=== PATIENT | male | born 1945 | race Caucasian/White ===

== ENCOUNTER 2017-11-16 11:44 | Emergency (ER) | payer MEDICARE, OTHER ==
[~2017-11-16] VITALS: Ht 188 cm; Wt 108.9 kg
[2017-11-16] MEDS ORDERED: OSLT75C PO (14:41)
[2017-11-16] MEDS ORDERED: RT-ALBUINH IH (14:41)
--- NOTE | 2017-11-16 14:42 | ED General ---
General Chief Complaint: Cough/Cold/Flu Symptoms Stated Complaint: FLU SYMPTOMS Nursing Triage Note: PT CO OF FLU SX FOR APPROX 3 DAYS, HAS CHILLS AND FEVER Nursing Sepsis Screen: No Definite Risk Allergies and Home Medications Allergies Coded Allergies: No Known Drug Allergies (Unverified , 11/16/17) Past Bahrwxo-[id number]-Tsmpzi Hx Patient Social History Alcohol Use: Rarely Uses Recreational Drug Use: No Smoking Status: Current Everyday Smoker Type Used: Cigarettes Recent Foreign Travel: No Contact w/Someone Who Travel: No Recent Infectious Disease Expo: No Recent Hopitalizations: No Physical Abuse: No Sexual Abuse: No Immunizations Up To Date Date of Pneumonia Vaccine: Jul 17, 2017 Date of Influenza Vaccine: Jul 17, 2017 Surgeries History of Surgeries: Yes Surgeries: Coronary Stent Respiratory History of Respiratory Disorde: Yes Respiratory Disorders: COPD Cardiovascular History of Cardiac Disorders: Yes Cardiac Disorders: Hypertension Neurological History of Neurological Disord: No Genitourinary History of Genitourinary Disor: No Gastrointestinal History of Gastrointestinal Di: No Musculoskeletal History of Musculoskeletal Dis: No Endocrine History of Endocrine Disorders: No HEENT History of HEENT Disorders: No Cancer History of Cancer: No Psychosocial History of Psychiatric Problem: No Suicide Risk Score: 0 Integumentary History of Skin or Integumenta: No Physical Exam Vital Signs Vital Sign - Last 12Hours 11/16/17 13:35 Temp 100.0 Pulse 95 Resp 18 B/P (MAP) 171/94 (119) Pulse Ox 95 Capillary Refill : Less Than 3 Seconds Progress/Results/Core Measures Suspected Sepsis Recent Fever Within 48 Hours: No Infection Criteria Present: None New/Unexplained Altered Menta: No Sepsis Screen: No Definite Risk Sepsis Diagnosis: SIRS Temperature:100.0 Pulse: 95 Respiratory Rate: 18 Blood Pressure 171 /94 Mean: 119 Results/Orders Micro Results Microbiology 11/16/17 Influenza Types A,B Antigen ([facility]AS[facility]) - Final, Complete Vital Signs/I&O Vital Sign - Last 12Hours 11/16/17 13:35 Temp 100.0 Pulse 95 Resp 18 B/P (MAP) 171/94 (119) Pulse Ox 95 Capillary Refill : Less Than 3 Seconds Blood Pressure Mean: 119 Departure Impression Impression: Primary Impression: Influenza A Additional Impression: Bronchospasm Disposition: 01 HOME, SELF-CARE Condition: Stable Departure-Patient Inst. Decision time for Depature: 14:38 Referrals: NO,LOCAL PHYSICIAN (PCP/Family) Primary Care Physician Patient Instructions: Flu, Adult (DC) Add. Discharge Instructions: Use your medications as prescribed. You may use Tylenol (acetaminophen) and/or ibuprofen for fever and pain. Return to care if symptoms worsen. It will likely take several more days for you to recover from this illness. Reduce your smoking as much as possible and work toward quitting. You may use gum, patches, or lozenges for replacement nicotine therapy. Do not used inhaled nicotine vapor products. Receive annual influenza vaccines to prevent future influenza illnesses. All discharge instructions reviewed with patient and/or family. Voiced understanding. Scripts Albuterol Sulfate (PROAIR HFA) 1 Puff Puff 1-4 PUFF IH Q4H Y for SHORTNESS OF BREATH, #1 PUFF 1 PUFF = 90 MCG Prov: AVIVA DURÁN MD 11/16/17 Oseltamivir Phosphate (Tamiflu) 75 Mg Cap 75 MG PO BID, #10 CAP Prov: AVIVA DURÁN MD 11/16/17 AVIVA DURÁN MD Nov 16, 2017 14:42
[2017-11-16 14:47] VITALS: BP 171/94
== END 2017-11-16 14:53 | disposition home or self-care (01) ==
LOC: EDUNIT# 11:44 → ER 11:45
DX: J10.1 Influenza due to other identified influenza virus with other respiratory manifestations (principal); J98.01 Acute bronchospasm; J44.9 Chronic obstructive pulmonary disease, unspecified; I10 Essential (primary) hypertension; F17.210 Nicotine dependence, cigarettes, uncomplicated; Z95.5 Presence of coronary angioplasty implant and graft
CPT/HCPCS: 87804; 99282